=== PATIENT | male | born 1945 | race Caucasian/White ===

== ENCOUNTER 2017-05-06 09:52 | Inpatient (IN) | payer MEDICARE ==
[~2017-05-06] VITALS: Ht 180.3 cm; Wt 83.9 kg
--- NOTE | 2017-05-06 09:57 | ED.REPORT ---
HPI-Neurologic Deficit Date of Service May 06, 2017 ED Provider: The patient is a 71 year old male with history of previous strokes on Plavix, hypertension, high cholesterol, and thyroid disease, who was brought to the emergency department by his for symptoms concerning of a stroke. The patient states he was playing on the computer between 0830 and 0900 when he suddenly couldn't use his right arm. He was normal before 0830 this morning. He then came down the stairs to have breakfast with his around 0900. His states that the patient had a banana in his hand but couldn't figure out how to peel it. His also states that he was unable to speak to her and look confused. At this time the patient is able to speak but complains of right upper extremity weakness and numbness, and right-sided neck numbness. He denies any pain, visual changes, leg weakness or numbness, or problem walking. The patient did not have similar symptoms when he previously had a stroke. His states the patient vomited and was very fatigued. They saw his PCP the next day who diagnosed him with a stroke and started him on Plavix. Nursing Notes Stated Complaint: POSS STROKE Nursing Notes Reviewed: Yes Allergies: Coded Allergies: Penicillins (Verified Allergy, Intermediate, unknown, 05/06/17) Scheduled Atorvastatin (Lipitor) 20 Mg Tablet 20 MG PO DAILY Clopidogrel Bisulfate (Plavix) 75 Mg Tablet 75 MG PO DAILY Flaxseed Oil ([place]-3 Flaxseed Oil) 1,000 Mg Capsule Unknown Dose PO DAILY Levothyroxine (Synthroid) 50 Mcg Tablet 50 MCG PO DAILY Lisinopril (Lisinopril) 5 Mg Tablet 5 MG PO DAILY General Time Seen by Provider: 09:56 Chief Complaint Weakness arm... (Right), Numbness arm... (Right), Mental status change Hx Obtained From: Patient, Spouse Arrived By: Wheelchair Sudden in Onset?: Yes Onset Occurred: 1 - 4 hours ago Symptom Duration: Since onset Progression Since Onset: Constant Severity: Current: No pain currently Severity: Maximum: No pain Recent Healthcare: No recent doctor visit, No recent hospitalization Similar Sx Previous: No Risk Factors TPA Administration/Criteria Stroke Thrombolytic Therapy : TPA Considered: Yes Neurologist Contacted: Yes Consent Obtained: Patient NIH Stroke Scale Level of Consciousness: Alert and responsive (0) Ask Month & Age: Both questions right (0) Open/Close Eyes/Hand [employer] Supervisor: Performs both tasks (0) Horizontal EO Movements: None (0) Visual Mccarthy: No visual loss (0) Facial Palsy: Minor paralysis (1) Right Arm Motor Drift (10s): No effort, limb fails (3) Left Arm Motor Drift (10s): No drift 10 sec (0) Right Leg Motor Drift (5s): No drift 5 sec (0) Left Leg Motor Drift (5s): No drift 5 sec (0) Limb Ataxia FNF/Heel-Irwin: No ataxia (0) Sensation (Arms/Legs/Face): Complete sensory loss (2) Language Aphasia: No aphasia, normal (0) Dysarthria: Slurring intelligible (1) Extinction/Inattention: No exctinct/inattent (0) NIHSS Score: 7 Time NIHSS Performed: 10:11 Date NIHSS Performed: May 06, 2017 Past Medical History Past Medical History Hypertension High cholesterol Hypothyroidism Stroke on Plavix Past Surgical History Eyelid surgery Family History Noncontributory Smoking History Unknown if Ever Smoker Social History Other Social History: Good social support, , Local resident Ambulatory Status Independent Review of Systems Neurologic: Reports: Confusion, Focal weakness, Numbness, Unable to speak, Weakness, Denies: Headache, Problem walking, Vision change Complete sys rev & neg: except as marked. Physical Exam Initial Vital Signs Vital Signs (First) Date Time Temp Pulse Resp B/P Pulse Ox O2 Delivery O2 Flow Rate FiO2 05/06/17 10:06 36.4 65 15 146/76 98 Room Air Initial VS: Reviewed ENT: Mucous membranes moist, Conjunctiva normal, No scleral icterus Neck: Supple, Non-tender, Full range of motion Abdomen / GI: Soft, Non-tender, No guarding, No rebound, No distention Extremities: No swelling, No tenderness Skin: Warm, Dry, No cyanosis Psychiatric: Mood/affect normal, Behavior normal, Normal thought content General/Constitutional: Awake, Alert Head / Eyes: Atraumatic, Normocephalic, PERRL, EOMI Respiratory / Chest: Atraumatic, Breath sounds NL, Breath sounds = bilat, No respiratory distress, No rales, No rhonchi, No wheezing Cardiovascular: Heart rate NL, Regular rhythm, Heart sounds NL, No gallop, No murmurs, No rubs, Peripheral circulation NL Neurologic: Oriented X3 Speech: Positive: Slurred Focal Weakness: Positive: Upper extremity R Sensory Deficit: Positive: Upper extremity R Right-sided facial droop. NIH stroke scale: 7 Interpretation & Diagnostics PROCEDURE: CT ANGIO HEAD AND NECK IMPRESSION: 1. Old left cerebellar and right occipital lobe infarct. 2. Extensive findings likely associated with microvascular ischemic changes. 3. No acute intracranial findings. 4. No stenosis, occlusion, or aneurysm of the intracranial or cervical arteries. Dictated by: Ysabel Thompson M.D. on 05/06/2017 at 11:55 Lab Results Interpretation Result Diagram: 05/06/17 1012 05/06/17 1012 Test 05/06/17 10:12 White Blood Count 6.0th/mm3 (3.8-10.1) Red Blood Count 4.60mil/mm3 (4.40-5.80) Hemoglobin 15.8g/dL (13.8-17.2) Hematocrit 45.3% (41.0-50.0) Mean Corpuscular Volume 98.5fL (81-100) Mean Corpuscular Hemoglobin 34.3pg (27.0-35.0) Mean Corpuscular Hemoglobin Concent 34.9% (32.0-37.0) Red Cell Distribution Width 12.6% (12.3-15.4) Platelet Count 205bil/L (150-400) Neutrophils (%) (Auto) 56.0% (40-74) Lymphocytes (%) (Auto) 32.6% (14-46) Monocytes (%) (Auto) 9.4% (4-12) Eosinophils (%) (Auto) 1.3% (0-5) Basophils (%) (Auto) 0.5% (0-3) Prothrombin Time 11.0sec (8.1-12.5) Prothromb Time International Ratio 1.03ratio Activated Partial Thromboplast Time 26.1sec (22.8-33.0) Sodium Level 139mEq/L (134-144) Potassium Level 4.2mEq/L (3.5-5.2) Chloride Level 100mEq/L (97-108) Carbon Dioxide Level 22mmol/L (18-29) Blood Urea Nitrogen 16mg/dL (8-27) Creatinine 1.20mg/dL (0.76-1.27) Estimat Glomerular Filtration Rate 63mL/min (>59) Glucose Level 103mg/dL (60-99) Calcium Level 9.0mg/dL (8.5-10.1) Total Bilirubin 0.8mg/dL (0.0-1.2) Aspartate Amino Transf (AST/SGOT) 25U/L (0-50) Alanine Aminotransferase (ALT/SGPT) 30U/L (0-44) Alkaline Phosphatase 78U/L (25-160) Troponin T 0.010ug/L (0.0-0.011) Total Protein 6.8g/dL (6.4-8.4) Albumin 4.0g/dL (3.4-5.0) Hold Ko Top Tube Received (Received) ECG Interpretation ECG Interpretation: Sinus rhythm with a rate of 66 First degree AV block LAD No acute ST changes Time: 10:26 Interpreted by: ED physician X-Ray Chest Interpretation Chest Xray Interpretation: IMPRESSION: No acute cardiopulmonary findings. Dictated by: Ysabel Thompson M.D. on 05/06/2017 at 10:45 Interpretation / Wet Read by: Interpret - Radiologist CT Head Interpretation IMPRESSION: 1. Old right occipital lobe and left cerebellar hemisphere infarcts as described above. 2. Moderate periventricular and deep white matter changes. These are likely associated with chronic microvascular ischemic changes. However, hypodense deep white matter foci secondary to acute or subacute infarct cannot be excluded. Unfortunately, no prior comparisons are available to determine the acuity of these findings. If further characterization for acute or subacute infarct as warranted, noncontrast MRI could be considered. These findings were discussed with Dr. Campos at 10:16 AM on 05/06/17. This study fulfills neurological imaging criteria for inclusion or exclusion of acute stroke therapies based on available published neurological guidelines. Dictated by: Ysabel Thompson M.D. on 05/06/2017 at 10:08 Study: Head CT no contrast Interpretation / Wet Read by: Interpret - Radiologist, Renée w radiologist Re-Eval/Medical Decision Med Decision/Clinical Course Acute ischemic stroke without contraindication to TPA. TPA was administered. Patient will be admitted to intensive care. Source of Hx: Old records, Family Re-Evaluation/Progress #1: Time of Eval: 10:16 Re-Evaluation/Progress Note: The weakness has not improved since onset. Re-Evaluation/Progress #2: Time of Eval: 10:20 Re-Evaluation/Progress Note: Discussed plan to consult [place] neurologist and the possibility of TPA administration. Reviewed list of contraindications with the patient. Informed decision making. Re-Evaluation/Progress #3: Time of Eval: 10:36 Re-Evaluation/Progress Note: Discussed plan with family to go ahead with the medication. Re-Evaluation/Progress #4: Time of Eval: 10:37 Re-Evaluation/Progress Note: TPA bolus administered at this time. Re-Evaluation/Progress #5: Time of Eval: 10:46 Re-Evaluation/Progress Note: Rechecked the patient. He is stable at this time. Discussed plan for an additional head CT and admission to [facility]. Re-Evaluation/Progress #6: Time of Eval: 12:07 Re-Evaluation/Progress Note: Rechecked the patient. He is resting comfortably. Minimal increase in function of the deltoid and hand on the right side, patient reports sensory deficit is mildly improved. Consultation #1: Referral / Consult Name: Ysabel Thompson MD Call Returned at: 10:12 Note: Spoke with the radiologist about the patient's head CT results. Consultation #2: Consulted With: Neurology Requested Call at: 10:23 Consultation #3: Call Returned at: 10:25 Note: Spoke with pharmacy, will start mixing TPA. Consultation #4: Consulted With: Neurology Call Returned at: 10:30 Note: Paged [place] again. Consultation #5: Referral / Consult Name: Jazmin Jones MD Consulted With: Neurology Call Returned at: 10:40 Note: Spoke with Dr. Jones, she is out of town. If the patient is stable they should stay at [facility]. Dr. Jones is available by phone - must call answering service. Consultation #6: Referral / Consult Name: Trent Ortiz MD Consulted With: Hospitalist Call Returned at: 10:59 Credit Underwriter: Will see patient, Agrees with eval, Agrees with plan, Accepts admit Consultation #7: Consulted With: Neurology Call Returned at: 11:02 Note: [place] neurolog[facility] returned our call at this time. Discussed the patient's case and plan for admission to [facility]. Counseled Regarding: Diagnosis, Lab results, Need for admission Discharge & Departure Impression: Primary Impression: Stroke CVA mechanism: unspecified Qualified Code: I63.9 - Cerebral infarction, unspecified Disposition: ADMITTED TO HOSPITAL Discharge Condition All VS Reviewed: Yes Condition: Stable Referrals: Soledad Marrero MD (PCP) Crit Care Except Billable Proc Time Spent: 75-104 minutes Services Performed: Patient management by me, Time spent at bedside, Reviewing test results, Reviewing imaging, Discussing patient care, Documentation in record, Time with fam/surrogate Critical Care Notes: See MDM Scribe Attestation Portions of this note were transcribed by Dorothy See. I, Dr. Dominique personally performed the history, physical exam and medical decision-making; I reviewed and confirmed the accuracy of the information in the transcribed note. Signed by: Rod Gruber, 05/06/2017 at 1215. copies to: Soledad Marrero MD, Timothy S DO May 06, 2017 09:57 Dorothy See May 06, 2017 10:04
[2017-05-06] MEDS ORDERED: 0.9% Sodium Chloride 1,000 ML IV ONE (10:05)
[2017-05-06 10:06] VITALS: BP 146/76; PULSE 65; RESP 15; O2SAT 98
--- NOTE | 2017-05-06 10:19 | DRSVH ---
PROCEDURE: CT BRAIN (TPA) ([id number]) INDICATIONS: Stroke TECHNIQUE: Noncontrast 4.5 mm thick angled axial sections acquired from the foramen magnum to the vertex, with c oronal reformats. COMPARISON: None. FINDINGS: Image quality: Excellent. CSF spaces: Basal cisterns are patent. No extra-axial fluid collections. The ventricles are symmet adarsh in size and shape. Brain: No intracranial bleeds or masses. There is a moderate cerebral volume loss for age, with res ultant ventricular and sulcal prominence. Encephalomalacia is present within the lateral aspect of th e left cerebellar hemisphere and within the superomedial aspect of the left cerebellar hemisphere. En cephalomalacia is also present within the posterior aspect of the right occipital lobe. There are mo derate periventricular and deep white matter chronic small vessel ischemic changes. There is intracr anial internal carotid artery atherosclerosis. Skull and face: Calvarium and visualized facial bones appear intact, without suspicious lesions. Sinuses: Visualized sinuses and mastoids are clear. IMPRESSION: 1. Old right occipital lobe and left cerebellar hemisphere infarcts as described above. 2. Moderate periventricular and deep white matter changes. These are likely associated with chronic m icrovascular ischemic changes. However, hypodense deep white matter foci secondary to acute or subacu te infarct cannot be excluded. Unfortunately, no prior comparisons are available to determine the acu ity of these findings. If further characterization for acute or subacute infarct as warranted, noncon trast MRI could be considered. These findings were discussed with Dr. Campos at 10:16 AM on 05/06/17. This study fulfills neurological imaging criteria for inclusion or exclusion of acute stroke therapie s based on available published neurological guidelines. Dictated by: Ysabel Thompson M.D. on 05/06/2017 at 10:08 Approved by: Ysabel Thompson M.D. on 05/06/2017 at 10:17
[2017-05-06 10:29] LABS: BASOPHILS % (AUTO) 0.5 % (0-3); EOSINOPHILS % (AUTO) 1.3 % (0-5); MONOCYTES % (AUTO) 9.4 % (4-12); Mean Corpuscular Hemoglobin 34.3 pg (27.0-35.0); Mean Corpuscular Volume 98.5 fL (81-100); Platelet Count 205 bil/L (150-400)
[2017-05-06 10:30] VITALS: BP 142/69; PULSE 66; RESP 17; O2SAT 99
[2017-05-06] MEDS ORDERED: Alteplase Dose Per Pharmacist XX ONE (10:30)
[2017-05-06] MEDS ORDERED: Alteplase (No Charge) 1 mg/mL Syringe IV ONE (10:47)
--- NOTE | 2017-05-06 10:47 | DRSVH ---
PROCEDURE: X-RAY CHEST ONE VIEW, PORTABLE ([id number]) INDICATIONS: right arm numbness, paralysis TECHNIQUE: One view of the chest was acquired. COMPARISON: None. FINDINGS: Surgical changes and devices: None. Lungs and pleura: No pleural effusions or pneumothorax. Lungs are clear. Mediastinum: Mediastinal contours appear normal. Heart size is normal. Bones and chest wall: No suspicious bony lesions. Overlying soft tissues appear unremarkable. IMPRESSION: No acute cardiopulmonary findings. Dictated by: Ysabel Thompson M.D. on 05/06/2017 at 10:45 Approved by: Ysabel Thompson M.D. on 05/06/2017 at 10:45
[2017-05-06] MEDS ORDERED: ALTEPLASE IV ONE (10:48)
[2017-05-06 10:51] LABS: INR 1.03 ratio
[2017-05-06 10:56] LABS: TROPONIN T 0.01 ug/L (0.0-0.011)
[2017-05-06] MEDS ORDERED: hydrALAZINE 20 mg/mL Inj IVPUSH PRN (11:05)
[2017-05-06] MEDS ORDERED: Ondansetron 2 mg/mL 2 mL Inj IVPUSH PRN (11:05)
[2017-05-06] MEDS ORDERED: Labetalol 5 mg/mL 4 mL Inj IVPUSH PRN (11:05)
[2017-05-06] MEDS ORDERED: ATOR20TA PO (11:15)
[2017-05-06] MEDS ORDERED: LEVO50TA83 PO (11:15)
[2017-05-06] MEDS ORDERED: FLAX100038 PO (11:16)
[2017-05-06] MEDS ORDERED: LISI-571 PO (11:16)
[2017-05-06] MEDS ORDERED: CLOP75TA3 PO (11:17)
--- NOTE | 2017-05-06 12:06 | DRSVH ---
PROCEDURE: CT ANGIO HEAD AND NECK (P) INDICATIONS: Stroke - tPA Infusing TECHNIQUE: Pre-contrast 4.5 mm thick sections acquired from the foramen magnum to the vertex. After the adminis tration of intravenous contrast, 1 mm thick sections acquired from the aortic arch through the [place]. Post-contrast 4.5 mm thick sections then re-acquired from the foramen magnum to the vert ex. 3-dimensional npjrwxr-[id number]-kluzoksypb (MIP) and/or volume rendering reformats were acquired of the central intracranial vasculature and neck separately. For radiation dose reduction, the foll owing was used: automated exposure control, adjustment of mA and/or kV according to patient size. COMPARISON: None. FINDINGS: Image quality: Excellent. BRAIN: CSF spaces: Ventricles are normal in size and shape. Basal cisterns are patent. No extra-axial flu id collections. Brain: No midline shift. No intracranial bleeds or masses. Encephalomalacia is present within the l ateral and superior aspects of the left cerebellar hemisphere. A small focus of encephalomalacia is p resent within the posterior right occipital lobe. There extensive deep and periventricular white sukhdev er changes throughout the brain suggestive of microvascular ischemia. Guerra-white matter interface solomon ears intact. Skull and face: Calvarium and facial bones appear intact, without suspicious lesions. Orbits appear normal. Sinuses: Sinuses and mastoids are clear. HEAD CT ANGIOGRAPHY: Anterior circulation: Intracranial internal carotid arteries are normal in size and flow. Scattered atheromatous calcification is present throughout the intracranial portions of the internal carotid ar teries without hemodynamically significant stenosis. The flow within the paired anterior cerebral art eries is normal and symmetric. The flow within the middle cerebral arteries is normal and symmetric. The anterior communicating artery is seen. No aneurysms are seen. Posterior circulation: Visualized portions of the vertebral arteries demonstrate normal caliber, and join to form a normal appearing basilar artery. Flow within the posterior cerebral arteries is norm al and symmetric. No aneurysms are seen. NECK CT ANGIOGRAPHY: Carotid system: The great vessels demonstrate a conventional anatomy as they arise from the aortic a h. The origins of the common carotid arteries appear patent. The common carotid arteries demonstr ate normal caliber and courses. The bifurcation regions are both widely patent. The internal caroti d arteries demonstrate normal calibers and courses. Posterior circulation: The origins of the vertebral arteries both appear widely patent. The more pagan perior extracranial portions of both vertebral arteries also demonstrate normal courses and calibers. They join to form a normal appearing basilar artery. Soft tissues: Visualized neck soft tissues demonstrate no suspicious abnormalities. Bones: No suspicious bony lesions. Visualized cervical spine appears normally aligned. IMPRESSION: 1. Old left cerebellar and right occipital lobe infarct. 2. Extensive findings likely associated with microvascular ischemic changes. 3. No acute intracranial findings. 4. No stenosis, occlusion, or aneurysm of the intracranial or cervical arteries. Dictated by: Ysabel Thompson M.D. on 05/06/2017 at 11:55 Approved by: Ysabel Thompson M.D. on 05/06/2017 at 12:04
--- NOTE | 2017-05-06 12:13 | NUR ---
Evaluation completed. Please go to "Notes" then click on "Assessments and Notes" (bottom left corner of screen). Then select appropriate discipline tab on top of screen.
[2017-05-06 12:22] VITALS: BP 134/77; PULSE 73; RESP 16; O2SAT 98
[2017-05-06 12:27] LABS: APPEARANCE,URINE CLEAR (CLEAR,HAZY); COLOR,URINE STRAW (YELLOW); OCCULT BLOOD,URINE NEGATIVE (NEGATIVE); PH,URINE 6.5 (5.0-8.0); UROBILINOGEN,URINE NORMAL (NORMAL)
--- NOTE | 2017-05-06 13:21 | PCM.HPMED ---
Subjective Date of Service May 06, 2017 Primary Provider: Admitting Physician: Trent Ortiz MD Primary Care Physician: Soledad Marrero MD Attending Physician: Trent Ortiz MD Admit Status: From the Emergency Department Chief Complaint: Right arm weakness History of Present Illness: Critical Care Admission H&P note Patient Adama Frank is a 71-year-old man with past medical history remarkable for dyslipidemia hypertension and previous strokes who presents with new onset right upper extremity weakness. The patient states that at 8:30 he was playing computer games as normal and his regular state of health when he began to notice right arm weakness worse in his biceps and shoulder with numbness starting in his anterior neck and radiating into his right upper extremity. Per the 's report the patient had came down to breakfast at approximately 9:00 and appeared unable to speak with a confused look holding a banana in his hand but could not figure out how to peal it. That is when the patient's decided to bring the patient into the emergency department for possible stroke given the patient's history. The patient's PCP Dr. Marrero has reportedly sent the patient to a neurologist in [facility] where imaging was performed not currently available in [facility]. The patient has been taking Plavix since the initial diagnosed stroke. The patient denies any acute visual changes, headaches, leg weakness and numbness problems walking, nausea, vomiting, shortness of breath or chest pain. In the [facility] emergency Department the patient was assessed and found to have an NIH stroke scale score of [address] head without contrast at which point the patient was given TPA at approximately 10:37 AM. The patient had a follow-up CT angiogram which failed to reveal a significant thrombus occlusion. The patient was then admitted to the CCU for post-TPA protocol. Review of Systems: A comprehensive review of systems was obtained and all are negative except for what is included in the history of present illness. Allergies Coded Allergies: Penicillins (Verified Allergy, Intermediate, unknown, 05/06/17) Home Medications Atorvastatin 20 mg Clopidogrel 75 mg Levothyroxine 50 g Lisinopril 5 mg PMH Dyslipidemia Hypertension Hypothyroidism Depression Stroke Report of viral encephalitis Surgical History Bilateral eye surgery Skin surgeries Family History Brother had diabetes mellitus Mother had Alzheimer's disease but lived to be 91 Father lived to be 80s fairly healthy. 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 Hx Alcohol Use: Yes (a couple of drinks a week) Hx Substance Use: No Hx Tobacco Use: No Living Arrangement: with Family Exam Vital Signs Vital Sign - Last Date Time Temp Pulse Resp B/P Pulse Ox O2 Delivery O2 Flow Rate FiO2 05/06/17 12:22 36.4 73 16 134/77 98 Room Air Exam General: Senior patient with normal body habitus appears in no acute distress Eyes: Pupils equal round and reactive to light, extraocular motion intact, anicteric sclera, significant Bilateral conjunctival injection noted HENT: Normocephalic atraumatic, moist mucous membranes without central cyanosis , oropharynx clear without cobblestoning Neck: Supple, trachea midline, no thyromegaly, no JVD or carotid bruits noted Cardiovascular: Regular rate and rhythm, no murmurs rubs or gallops noted Lungs: Clear to auscultation bilaterally without wheezing or rhonchi Abdomen: Soft, nontender, nondistended, tympanic to percussion, no organomegaly noted : No [place] catheter in place Extremities: No cyanosis clubbing or edema noted. Pulses intact bilaterally radial and dorsalis pedis Skin: Warm and dry MSK: Weakness noted in right upper extremity and both bicep tricep and deltoid, weakness also noted in right shoulder shrug, strength is intact in trend investigator, plantar , dorsiflexion Neuro: Cranial nerves II through XII are grossly intact, decreased sensation in right upper extremity throughout, no significant dysdiadochokinesia noted in upper extremities at hands or lower extremities, upgoing Babinski bilaterally, right bicep reflexes intact Psych: Normal mood and affect Lab and Diagnostics Result Diagram: 05/06/17 1012 05/06/17 1012 X-Rays, CTs and MRIs CT ANGIO HEAD AND NECK IMPRESSION: 1. Old left cerebellar and right occipital lobe infarct. 2. Extensive findings likely associated with microvascular ischemic changes. 3. No acute intracranial findings. 4. No stenosis, occlusion, or aneurysm of the intracranial or cervical arteries. Approved by: Ysabel Thompson M.D. on 05/06/2017 at 12:04 CT BRAIN IMPRESSION: 1. Old right occipital lobe and left cerebellar hemisphere infarcts as described above. 2. Moderate periventricular and deep white matter changes. These are likely associated with chronic microvascular ischemic changes. However, hypodense deep white matter foci secondary to acute or subacute infarct cannot be excluded. Unfortunately, no prior comparisons are available to determine the acuity of these findings. If further characterization for acute or subacute infarct as warranted, noncontrast MRI could be considered. These findings were discussed with Dr. Campos at 10:16 AM on 05/06/17. This study fulfills neurological imaging criteria for inclusion or exclusion of acute stroke therapies based on available published neurological guidelines. Approved by: Ysabel Thompson M.D. on 05/06/2017 at 10:17 X-RAY CHEST ONE VIEW, PORTABLE FINDINGS: IMPRESSION: No acute cardiopulmonary findings. Approved by: Ysabel Thompson M.D. on 05/06/2017 at 10:45 Assessment & Plan Patient Adama Frank is a 71-year-old man with past medical history remarkable for dyslipidemia hypertension and previous strokes who presents with new onset right upper extremity weakness. # Acute cerebrovascular accident - Patient presented to the emergency department with acute loss of right upper extremity sensation and strength. - On initial patient presentation and NIH stroke scale reported to be 7 - CT noncontrast read as moderate periventricular and deep white matter changes. These are likely associated with chronic microvascular ischemic changes. However, hypodense deep white matter foci secondary to acute or subacute infarct cannot be excluded. - Patient given TPA in the emergency department after imaging study fails to reveal a hemorrhagic stroke at 10:37 approximately 2 hours since the last normal - Patient had follow-up CT angiogram which failed to reveal a significant stenosis or occlusion of cerebral vasculature - Patient admitted to CCU with post TPA protocol including regular neuro checks per nursing staff - Speech consulted for swallow evaluation with patient improved for general diet - Neurology consulted, follow up NIH stroke scale 3 at CCU admission - Echo with bubble study ordered - MRI without contrast ordered for 05/07/2017 per neurology recommendations - Labetalol and hydralazine available when necessary for significantly elevated blood pressures >[address] for goal systolic blood pressure between 150 and 180 - NS running at 100 mils per hour for improved blood pressure given for systolic pressures of 130s to 140s at arrival in CCU - Atorvastatin 80 mg given as a one-time dose to be repeated daily at bedtime - PT/OT evaluation - We will obtain follow-up CT noncontrast prior to initiating ASA and clopidogrel 24 hrs after TPA administration on May 07 2017, depending on neuro recommendations DVT prophylaxis: SCDs with additional anticoagulation Contraindicated at this time given TPA administration, may consider initiation of heparin at more than 24 hours from TPA administration GI prophylaxis: Not indicated at this time CODE STATUS full The patient was admitted to CCU inpatient status with expected length of stay greater than 2 midnights given her presenting symptoms, likely complications, and require treatments. Pain Evaluation: Adequate Pain Control GI Prophylaxis: Not indicated VTE Prophylaxis Indicated: Contraindicated VTE Prophylaxis: Other (TPA given) VTE Mechanical Devices: Intermittant Pneumatic CD Resuscitation Status: CPR: Attempt Resuscitation Emeka Rosen DO May 06, 2017 13:21
[2017-05-06] MEDS: 0.9% Sodium Chloride 1,000 ML IV SCH (15:09)
--- NOTE | 2017-05-06 15:17 | CONS ---
[address] [address] CONSULTATION REPORT PATIENT: KEI JEWELL : 1945 MR#: [id number] ADMIT: 05/06/2017 JOB ID: [id number] NEUROLOGY CONSULTATION: DATE OF SERVICE: 05/06/2017 CHIEF COMPLAINT: Sudden onset right upper extremity weakness. REQUESTING PROVIDER: Dr. Reza. HISTORY OF PRESENTING ILLNESS: The patient is a very pleasant, 71-year-old, right-handed man with multiple medical problems, who presented following sudden onset of right upper extremity weakness. He also notes right upper extremity numbness. He was within the tPA window and received tPA. He reports that he has noted improvement in his symptoms at the bedside. He does report a history of multiple strokes in the past. He did see Dr. Michelle Benedict in the past. I did review her notes from 2013. I also reviewed notes from his primary care provider, Dr. Marrero, who he saw in December. In 2013, his MRI brain was noted to be remarkable for a subacute stroke in the cerebellum in the remote right parietal lobe. Decision was made to switch to Plavix as he reported at that time that he had been taking aspirin on a daily basis. He was also taking atorvastatin 20 mg at that time. He did have a Holter monitor study that I reviewed; the report of which I reviewed that was unremarkable. He does report a history of migraine headaches; however he notes that the migraine headaches are only triggered by certain foods such as Velveeta cheese and monosodium glutamate among others. He does report a family history of stroke in both parents; however his mother was 75 and his father was in his 80s. He does not smoke. He reports occasional alcohol use. No drugs. 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 I did review his computed tomography scan of the brain which did demonstrate white matter changes rather marked in nature which could be consistent with his prior history of viral encephalitis. He reports that he attributes the viral encephalitis to exposure to horses; however a definitive diagnosis of an equine encephalitis or a herpes simplex virus encephalitis; if this diagnosis was made, it was not communicated to him or his . He was told that he had encephalitis of unknown etiology. He has noted residual memory impairments following the encephalitis which was approximately 25 years ago. PAST SURGICAL HISTORY: Tonsillectomy. PAST MEDICAL HISTORY: Hypothyroidism, encephalitis as noted above, multiple strokes, migraine headaches without aura, hyperlipidemia and depression. He denies any history of diabetes. FAMILY HISTORY: As noted above, family history is remarkable for strokes at age 75 and in the mid 80s, in his mother and father, respectively. MEDICATIONS: Current medications can be found in the chart. ALLERGIES: No known drug allergies. His suspects that he may have an allergy to penicillin; however the patient stated that he is not sure if that is the case. REVIEW OF SYSTEMS: A complete review of systems was performed and was remarkable for above-noted. Modified [place] scale as an outpatient was zero. Modified [place] scale at this point is three. NIH stroke scale in the emergency department was noted to be 7. NIH stroke scale now is noted to be 4. Initially the NIH stroke scale was noted to be minor paralysis of the right side of his face for which he received a 1. Right arm motor drift at 10 seconds. No afferent limb fails for which he received a 3. Complete sensory loss for which he received 2 of the right upper extremity. Also noted for dysarthria, slurring intelligible speech, for which he received a 1. NIH stroke scale at this time remarkable for right arm motor drift at 10 seconds, score of 2, and sensory loss of the right upper extremity; a score of 2 for a total score of 4. He has also had eyelid surgeries in the past. He does report a history eyelid surgeries that were reportedly unsuccessful and he does report a history of conjunctival injection in both eyes which was noted on physical examination. No recent infections, fevers, chills, nausea, vomiting. A complete review of systems was performed which was unremarkable. DIAGNOSTIC DATA: EKG revealed a heart rate of 66, sinus rhythm, borderline prolonged UT interval. LAD, consider left anterior fascicular block, low voltage precordial leads. However no atrial fibrillation was noted. LAB WORK: WBC 6.0, hemoglobin 15.8, hematocrit 45.3, platelets of 205. Chemistries: Sodium 139, potassium 4.2, chloride was 100, bicarb was 22, BUN was 16, creatinine 1.20. Glucose of 103. LFTs were within normal limits. Urinalysis unremarkable. PT was 11.0, INR 1.03, and PTT was 26.1. Please see emergency department note for more information regarding the initiation of IV tPA. He was noted to be last known normal at 0.830. PHYSICAL EXAMINATION: Temperature 36.4, pulse of 73, respiratory rate of 16, blood pressure 134/77, pulse oximetry 98% on room air. General: He is a well-developed, well-nourished man in no acute distress. Head: Normocephalic, atraumatic. Neck is supple. No carotid bruits were auscultated. Negative Kernig. Negative Brudzinski. Chest clear to auscultation. Heart: Regular rate and rhythm. Abdomen: Soft, nondistended, nontender. Extremities: No cyanosis, clubbing, or edema. NEUROLOGIC EXAMINATION: Mental status: He is awake, alert, oriented x3. Speech clear and fluent with intact comprehension. There was no aphasia. No dysarthria or dysphonia were noted. Cranial nerves: Pupils equal, round, reactive to light. Extraocular movements were smooth and conjugate with no evidence of nystagmus. Face appeared symmetrical. Facial sensation was intact to light touch and temperature. Auditory sensation was intact to finger rub. Palatal elevation was symmetrical. Tongue was midline. Sternocleidomastoid and trapezii were 5/5 bilaterally. There was bilateral conjunctival injection. No ptosis was noted. No oral facial weakness was noted. Motor: There is drift of the right upper extremity within 10 seconds; however he is able to lift it above gravity and maintain it, although for less than 10 seconds. Coordination: [id number] was deferred on the right secondary to right upper extremity weakness; that was intact on the left with no evidence of dysmetria. Motor otherwise 5/5 throughout. Sensation was diminished to light touch and temperature in the right upper extremity. Rest of sensory examination was within normal limits. Coordination as above. Deep tendon reflexes brisk in the right upper extremity; rest 2+. Plantars were silent bilaterally. Gait was deferred. IMPRESSION: Cerebrovascular accident. This occurred despite being on Plavix. Risk factors do include hypertension, hyperlipidemia, and hypothyroidism. I did review his CT angiogram which demonstrated an old left cerebellar and right occipital lobe infarct and microvascular ischemic changes, extensive deep and periventricular white matter changes throughout the brain as noted above in the body of my note. No acute intracranial findings. No stenosis, occlusion, or aneurysm of the intracranial or cervical arteries. Chest x-ray was performed, which demonstrated no acute cardiopulmonary findings. A CT of the head without contrast demonstrated above findings with no evidence of hemorrhage or mass lesion. RECOMMENDATIONS: Continue stroke protocol, post tPA. I recommend obtaining a magnetic resonance imaging study of his brain with and without contrast. I recommend obtaining a 2D echocardiogram. If this is unremarkable, he may benefit from a transesophageal echocardiogram to exclude the possibility of a cardioembolic etiology especially given the location of his two prior strokes. If these are unremarkable, I do recommend that as an outpatient he received an event monitor or at the very minimum a Zio Patch study for 14 days. An event monitor would be preferable. My suspicion is that his prior strokes may have been cardioembolic in nature and this stroke as well may be cardioembolic in nature. I also recommend a fasting lipid profile tomorrow morning and adjustment of statin as indicated given fasting lipid profile results. Continue stroke protocol. Recommend continued optimization of control of stroke risk factors. Thank you, again, Dr. Reza, for allowing me to participate in care of your patient. Please feel free to contact me with any questions or concerns. CRITICAL CARE UNIT TIME: 45 minutes.
[2017-05-06 16:02] VITALS: BP 136/62; PULSE 63; RESP 13; O2SAT 97
--- NOTE | 2017-05-06 18:10 | PCM.HPMED ---
Subjective Date of Service May 06, 2017 Primary Provider: Admitting Physician: Trent Ortiz MD Primary Care Physician: Soledad Marrero MD Attending Physician: Trent Ortiz MD Juice Weigher: Kameron Preciado DO Admit Status: From the Emergency Department Chief Complaint: Right arm weakness History of Present Illness: Adama Frank is a 71-year-old gentleman with past medical history of prior CVA in 2013 with no residual deficits, hyperlipidemia and hypertension who presents with new onset right upper extremity weakness. At 0830 today, patient mentions he playing a game on his computer when he suddenly began to have right arm weakness, most noticeably in the bicep and shoulder with numbness starting in his anterior neck, radiating into the right arm and forearm. According to the , the patient had come down around 0900 and was unable to speak, confused and holding a banana in his hand, but unable to figure out how to peel it. He was then brought in by the to the emergency department. He does have a history of stroke back in 2013, but it is unclear what the workup was and he has no residual deficits from it. His workup was reportedly done at [facility]. He has been taking Plavix since then. He denies any headaches, acute visual changes, difficulty with swallowing, chest pain, shortness of breath, nausea, vomiting, difficulty with walking, or other sensory losses. In the emergency department, the patient was found to have an NIH stroke scale score of 7. CT head without contrast did not show any signs of bleeding and so TPA was given at around 1037. Follow up CT angiogram did not show any thrombus occlusion. The patient was admitted to CCU for post-TPA protocol. Review of Systems: A comprehensive review of systems was conducted with the patient and found to be negative except as above in the History of Present Illness. Allergies Coded Allergies: Penicillins (Verified Allergy, Intermediate, unknown, 05/06/17) Home Medications Atorvastatin 20 mg Synthroid 50 mcg Lisinopril 5 mg Clopidogrel 75 mg PMH CVA (2013 with no residual deficits, now on Plavix) Hypertension Hyperlipidemia Surgical History Bilateral eye surgery Skin surgeries Family History Brother had diabetes mellitus Mother had Alzheimer's disease but lived to be 91 Father lived to be 80s fairly healthy. 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 External ears without defect. Pupils equal, round, and reactive to light and accommodation. Injected conjunctivae (chronic per patient), moist conjunctivae, and no lid lag. Neck: Supple with full range of motion. No jugular venous distension. No lymphadenopathy or thyromegaly. Cardiovascular: Regular rate and rhythm with no murmurs, rubs, or gallops appreciated Pulmonary: Clear to auscultation bilaterally with no crackles, wheezes, or rhonchi. Normal respiratory effort with no use of accessory muscles. Abdomen: Bowel tones present. Soft, nontender, nondistended. No hepatosplenomegaly or masses appreciated. Extremities: No clubbing, cyanosis, edema, or lymphadenopathy appreciated. Skin: Normal temperature, turgor, and texture; no rash, ulcers, or subcutaneous nodules appreciated. Neurological: Cranial nerves II - XII intact. Patient has good rotation of head , but weakness with right shoulder shrug. 2/5 strength in right arm flexion and extension. 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 No sensation from right upper shoulder distally till the wrist. There is sensation in his hands. Reflexes are intact. 4 /5 left upper extremity strength. 4/5 lower extremity strength bilaterally with no loss in sensation. Finger to nose slow on right arm due to right upper extremity weakness. Repeat NIH stroke scale score is 4. No slurred speech. Psychiatric: Normal mood and affect. Alert and oriented to person, place, and time. Lab and Diagnostics Result Diagram: 05/06/17 1012 05/06/17 1012 X-Rays, CTs and MRIs CT ANGIO HEAD AND NECK IMPRESSION: 1. Old left cerebellar and right occipital lobe infarct. 2. Extensive findings likely associated with microvascular ischemic changes. 3. No acute intracranial findings. 4. No stenosis, occlusion, or aneurysm of the intracranial or cervical arteries. Approved by: Ysabel Thompson M.D. on 05/06/2017 at 12:04 CT BRAIN IMPRESSION: 1. Old right occipital lobe and left cerebellar hemisphere infarcts as described above. 2. Moderate periventricular and deep white matter changes. These are likely associated with chronic microvascular ischemic changes. However, hypodense deep white matter foci secondary to acute or subacute infarct cannot be excluded. Unfortunately, no prior comparisons are available to determine the acuity of these findings. If further characterization for acute or subacute infarct as warranted, noncontrast MRI could be considered. These findings were discussed with Dr. Campos at 10:16 AM on 05/06/17. This study fulfills neurological imaging criteria for inclusion or exclusion of acute stroke therapies based on available published neurological guidelines. Approved by: Ysabel Thompson M.D. on 05/06/2017 at 10:17 X-RAY CHEST ONE VIEW, PORTABLE FINDINGS: IMPRESSION: No acute cardiopulmonary findings. Approved by: Ysabel Thompson M.D. on 05/06/2017 at 10:45 Assessment & Plan Adama Frank is a 71-year-old gentleman with past medical history of prior CVA in 2014 with no residual deficits, hyperlipidemia and hypertension who presents with new onset right upper extremity weakness. Acute cerebrovascular accident Patient presented to the emergency department with acute loss of right upper extremity sensation and strength, NIH stroke scale score 7, CT without acute bleed, TPA given approximately 2 hours after initial presentation. - Patient admitted to CCU with post TPA protocol including regular neuro checks per nursing staff - Speech consulted for swallow evaluation and given recommendation for general diet. - Neurology consulted, follow up NIH stroke scale score 4 at admission into CCU - Echo with bubble study, MRI without contrast ordered for 05/07/2017 per neurology recommendations - Labetalol and hydralazine available when necessary for significantly elevated blood pressures >[address] for goal systolic blood pressure between 150 and 180. - NS running at 100 mL/hour for improved blood pressure given for systolic pressures of 130s to 140s at arrival in CCU - Atorvastatin 80 mg given as a one-time dose to be repeated daily at bedtime - PT/OT evaluation - We will obtain follow-up CT noncontrast prior to initiating ASA and clopidogrel 24 hrs after TPA administration on May 07 2017, depending on neurology recommendations Essential Hypertension, present on admission, active - Allowing for permissive hypertension with goal systolic blood pressure between 150-180. - Hold home blood pressure medications Hyperlipidemia, chronic - Atorvastatin given as above. DVT prophylaxis: SCDs with additional anticoagulation contraindicated at this time given TPA administration, may consider initiation of heparin at more than 24 hours from TPA administration GI prophylaxis: Not indicated at this time CODE STATUS: Full Code The patient was admitted to CCU inpatient status with expected length of stay greater than 2 midnights given her presenting symptoms, likely complications, and require treatments. Pain Evaluation: Adequate Pain Control GI Prophylaxis: Not indicated VTE Prophylaxis Indicated: Contraindicated VTE Prophylaxis: Other (TPA given) VTE Mechanical Devices: Intermittant Pneumatic CD Resuscitation Status: CPR: Attempt Resuscitation Attending Statement The patient was seen and examined together with Dr. Preciado on 05/06/2017 and I agree with the history, exam and plan as outlined in the note above. . copies to: Soledad Marrero MD, Malik A DO May 06, 2017 18:10 Trent Ortiz MD May 07, 2017 15:05
--- NOTE | 2017-05-06 19:06 | PCM.CHPMED ---
Subjective Date of Service: May 06, 2017 Provider requesting consult: Trent Ortiz MD Primary Physician: Admitting Physician: Trent Ortiz MD Primary Care Physician: Soledad Marrero MD Attending Physician: Trent Ortiz MD Admit Status: From the Emergency Department Chief Complaint: Chief Complaint: Right arm weakness History of Present Illness: Critical Care Consult note Patient Adama Frank is a 71-year-old man with past medical history remarkable for dyslipidemia hypertension and previous strokes who presents with new onset right upper extremity weakness. The patient states that at 8:30 he was playing computer games as normal and his regular state of health when he began to notice right arm weakness worse in his biceps and shoulder with numbness starting in his anterior neck and radiating into his right upper extremity. Per the 's report the patient had came down to breakfast at approximately 9:00 and appeared unable to speak with a confused look holding a banana in his hand but could not figure out how to peal it. That is when the patient's decided to bring the patient into the emergency department for possible stroke given the patient's history. The patient's PCP Dr. Marrero has reportedly sent the patient to a neurologist in [facility] where imaging was performed not currently available in [facility] system. The patient has been taking Plavix since the initial diagnosed stroke. The patient denies any acute visual changes, headaches, leg weakness and numbness problems walking, nausea, vomiting, shortness of breath or chest pain. In the [facility] emergency Department the patient was assessed and found to have an NIH stroke scale score of [address] head without contrast at which point the patient was given TPA at approximately 10:37 AM. The patient had a follow-up CT angiogram which failed to reveal a significant thrombus occlusion. The patient was then admitted to the CCU for post-TPA protocol. Review of Systems: A comprehensive review of systems was obtained and all are negative except for what is included in the history of present illness. PMH Past Medical History Dyslipidemia Hypertension Hypothyroidism Depression Stroke Report of viral encephalitis Bedside Blood Glucose: 108 Surgical History Bilateral eye surgery Skin surgeries Home Medications Atorvastatin 20 mg Clopidogrel 75 mg Levothyroxine 50 g Lisinopril 5 mg Allergies: Coded Allergies: Penicillins (Verified Allergy, Intermediate, unknown, 05/06/17) Family History Family History Brother had diabetes mellitus Mother had Alzheimer's disease and stroke in 80s but lived to be 91 Father had a stoke in 70s lived to be 80s fairly healthy. 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 Hx Alcohol Use: Yes (a couple of drinks a week)Hx Substance Use: NoHx Tobacco Use: No Living Arrangement: with Family Exam Vital Signs Vital Sign - Last Date Time Temp Pulse Resp B/P Pulse Ox O2 Delivery O2 Flow Rate FiO2 05/06/17 16:02 36.8 63 13 136/62 97 Room Air Additional Information: General: Senior patient with normal body habitus appears in no acute distress Eyes: Pupils equal round and reactive to light, extraocular motion intact, anicteric sclera, significant Bilateral conjunctival injection noted HENT: Normocephalic atraumatic, moist mucous membranes without central cyanosis , oropharynx clear without cobblestoning Neck: Supple, trachea midline, no thyromegaly, no JVD or carotid bruits noted Cardiovascular: Regular rate and rhythm, no murmurs rubs or gallops noted Lungs: Clear to auscultation bilaterally without wheezing or rhonchi Abdomen: Soft, nontender, nondistended, tympanic to percussion, no organomegaly noted : No [place] catheter in place Extremities: No cyanosis clubbing or edema noted. Pulses intact bilaterally radial and dorsalis pedis Skin: Warm and dry MSK: Weakness noted in right upper extremity and both bicep tricep and deltoid, weakness also noted in right shoulder shrug, strength is intact in finish cleaner, plantar , dorsiflexion Neuro: Cranial nerves II through XII are grossly intact, decreased sensation in right upper extremity throughout, no significant dysdiadochokinesia noted in upper extremities at hands or lower extremities, upgoing Babinski bilaterally, right bicep reflexes intact Psych: Normal mood and affect Lab and Diagnostics Result Diagram: 05/06/17 1012 05/06/17 1012 X-Rays, CTs and MRIs X-Rays, CTs and MRIs CT ANGIO HEAD AND NECK IMPRESSION: 1. Old left cerebellar and right occipital lobe infarct. 2. Extensive findings likely associated with microvascular ischemic changes. 3. No acute intracranial findings. 4. No stenosis, occlusion, or aneurysm of the intracranial or cervical arteries. Approved by: Ysabel Thompson M.D. on 05/06/2017 at 12:04 CT BRAIN IMPRESSION: 1. Old right occipital lobe and left cerebellar hemisphere infarcts as described above. 2. Moderate periventricular and deep white matter changes. These are likely associated with chronic microvascular ischemic changes. However, hypodense deep white matter foci secondary to acute or subacute infarct cannot be excluded. Unfortunately, no prior comparisons are available to determine the acuity of these findings. If further characterization for acute or subacute infarct as warranted, noncontrast MRI could be considered. These findings were discussed with Dr. Campos at 10:16 AM on 05/06/17. This study fulfills neurological imaging criteria for inclusion or exclusion of acute stroke therapies based on available published neurological guidelines. Approved by: Ysabel Thompson M.D. on 05/06/2017 at 10:17 X-RAY CHEST ONE VIEW, PORTABLE FINDINGS: IMPRESSION: No acute cardiopulmonary findings. Approved by: Ysabel Thompson M.D. on 05/06/2017 at 10:45 Assessment & Plan Assessment Patient Adama Frank is a 71-year-old man with past medical history remarkable for dyslipidemia hypertension and previous strokes who presents with new onset right upper extremity weakness. # Acute cerebrovascular accident - Patient presented to the emergency department with acute loss of right upper extremity sensation and strength. - On initial patient presentation and NIH stroke scale reported to be 7 - CT noncontrast read as moderate periventricular and deep white matter changes. These are likely associated with chronic microvascular ischemic changes. However, hypodense deep white matter foci secondary to acute or subacute infarct cannot be excluded. - Patient given TPA in the emergency department after imaging study fails to reveal a hemorrhagic stroke at 10:37 approximately 2 hours since the last normal - Patient had follow-up CT angiogram which failed to reveal a significant stenosis or occlusion of cerebral vasculature - Patient admitted to CCU with post TPA protocol including regular neuro checks per nursing staff - Speech consulted for swallow evaluation with patient improved for general diet - Neurology consulted, follow up NIH stroke scale 3 at CCU admission - Echo with bubble study ordered - MRI without contrast ordered for 05/07/2017 per neurology recommendations - Labetalol and hydralazine available when necessary for significantly elevated blood pressures >[address] for goal systolic blood pressure between 150 and 180 - NS running at 100 mils per hour for improved blood pressure given for systolic pressures of 130s to 140s at arrival in CCU - Atorvastatin 80 mg given as a one-time dose to be repeated daily at bedtime - PT/OT evaluation - We will obtain follow-up MRI with and without contrast prior to initiating ASA and clopidogrel 24 hrs after TPA administration on May 07 2017, depending on neuro recommendations DVT prophylaxis: SCDs with additional anticoagulation Contraindicated at this time given TPA administration, may consider initiation of heparin at more than 24 hours from TPA administration GI prophylaxis: Not indicated at this time Problems: Pain Evaluation: Adequate Pain Control GI Prophylaxis: Not indicated VTE Prophylaxis Indicated: Contraindicated VTE Prophylaxis: Other (TPA given) VTE Mechanical Devices: Intermittant Pneumatic CD Resuscitation Status: CPR: Attempt Resuscitation Emeka Rosen DO May 06, 2017 19:06
[2017-05-06 20:00] VITALS: BP 117/57; PULSE 66; RESP 15; O2SAT 95
[2017-05-07] VITALS (9 sets, daily range): BP systolic 91–161; BP diastolic 40–84; PULSE 56–75; RESP 10–18; O2SAT 95–98
[2017-05-07] MEDS: 0.9% Sodium Chloride 1,000 ML IV SCH ×3 (00:05→20:05)
[2017-05-07 03:22] LABS: BASOPHILS % (AUTO) 0.4 % (0-3); EOSINOPHILS % (AUTO) 1.6 % (0-5); MONOCYTES % (AUTO) 9.3 % (4-12); Mean Corpuscular Hemoglobin 33.5 pg (27.0-35.0); Mean Corpuscular Volume 100.2 fL (81-100); NEUTROPHILS % (AUTO) 59.1 % (40-74); Platelet Count 189 bil/L (150-400)
[2017-05-07 03:58] LABS: Magnesium 2.1 mg/dL (1.6-2.6)
--- NOTE | 2017-05-07 05:24 | NUR ---
Neuro. Vs as noted. Neuro checks q1h. Reports right scalp/ neck numbness that he reports aways reports is getting better. Remains alert and oriented. No other deficits. Tele sinus rhythm 50s to 70s. No signs of bleeding or bruising. Voiding adequately per urinal. IVF NS at 100ml/h.
--- NOTE | 2017-05-07 10:44 | NUR ---
Imaging. Pt to MRI
--- NOTE | 2017-05-07 11:44 | DRSVH ---
PROCEDURE: MRI BRAIN WITH AND WITHOUT CONTRAST ([id number]) INDICATIONS: Stroke, post TPA TECHNIQUE: Noncontrast axial T1 spin echo, axial T2 fast spin echo, sagittal and axial FLAIR, coronal T2 fast sp in echo, axial gradient echo, axial diffusion and ADC through the brain. After the administration of contrast, axial and coronal T1 spin echo with fat saturation through the brain. COMPARISON: [facility], CT, CT ANGIO BRAIN AND NECK, 05/06/2017, 11:07. [facility], CT, BRAIN (TPA), 05/06/2017, 10:07. FINDINGS: Image quality: Excellent. CSF spaces: Basal cisterns are patent. No extra-axial fluid collections. Ventricles are normal in size and shape. Brain: No midline shift. No intracranial bleeds or masses. No abnormal intracranial enhancement. There is cerebral volume loss for age. There is periventricular white matter chronic small vessel is chemic change. The brainstem appears normal. Diffusion-weighted images demonstrate a 35mm anteropos terior by 10 mm transverse region of cortical high signal intensity within the left anterosuperior fr ontal lobe. Additionally, within the left superior frontoparietal lobe junction, there is a 27 mm tra nsverse by 13 mm in anteroposterior region of elevated signal intensity. These findings demonstrate m oderate FLAIR signal elevation, and are consistent with subacute infarcts. Chronic left greater than right cerebellar infarcts and small chronic right medial occipital lobe infarct is present. No chroni c ischemic insults. Normal intravascular flow voids are present. Skull and face: Calvarial marrow is normal in signal. Orbits appear normal. Sinuses: Sinuses and mastoids appear clear. IMPRESSION: 1. Subacute left frontoparietal lobe infarcts. 2. Volume loss and small vessel ischemic disease. 3. Chronic cerebral and cerebellar infarcts. Dictated by: Milind Mandel M.D. on 05/07/2017 at 11:38 Approved by: Milind Mandel M.D. on 05/07/2017 at 11:42
--- NOTE | 2017-05-07 12:36 | NUR ---
Evaluation completed. Please go to "Notes" then click on "Assessments and Notes" (bottom left corner of screen). Then select appropriate discipline tab on top of screen.
--- NOTE | 2017-05-07 13:08 | NUR ---
Patient progressing towards planned outcomes. NIH 2. Moving all extremities. Slight decrease in strength reported in right upper extremity; however, significantly improved since receiving TPA. Continued reports of decreased sensation in in rt upper arm, rt lateral neck and ear. Speech clear and organized. Alert and oriented x 3. Denies pain. SR per telemetry. VSS. Up with steady gait, tolerating activity. Will continue to monitor.
--- NOTE | 2017-05-07 13:31 | DRSVH ---
[facility] [address] [place] [address] Echocardiogram Report Name: KEI JEWELL JStudy Date: 05/07/2017 Height: 71 in Hospital Exam Location: [facility] Weight: 18 2 lb Gender: Male BSA: 2.0 m2 : 1945 Age: 71 yrs BP: 161/68 mmHg Reason For Study: CVA Ordering Physician: [facility]PITAL[facility] Performed By: Mehreen Millard Referring Physician: Dr Soledad Marrero Interpretation Summary 1) Normal left ventricular tihckness, size, wall motion, and systolic function (EF 60-65%). 2) Normal right ventricular size and function. 3) No significant valvular abnormalities. 4) Injection of contrast documented an interatrial shunt. 5) Hypertension present during the study (BP 161/68). 6) No prior Echo available for comparison. Procedure: A two-dimensional transthoracic echocardiogram with color flow and Doppler was performed. The study quality was technically adequate. There is no prior echocardiogram noted for this patient. The patient was in normal sinus rhythm during the exam. Left Ventricle: The left ventricle is normal in size, wall thickness, and systolic function without any focal wall motion abnormalities. The ejection fraction is estimated to be 60-65%. The E/A ratio is reversed, suggesting impaired early relaxation of the left ventricle or a reduced preload state. Assessment of diastolic parameters indicates a relaxation abnormality of the left ventricle, consistent with normal filling pressures. Right Ventricle: Borderline right ventricular enlargement. Right ventricular systolic function is borderline reduced. Atria: The left atrium is moderately dilated. Right atrial size is normal. Injection of contrast documented an interatrial shunt. Mitral Valve: The mitral valve leaflets appear mildly thickened, but open well. There is trace mitral regurgitation. Aortic Valve: The aortic valve is trileaflet. The aortic valve opens well. No aortic regurgitation is present. Tricuspid Valve: The tricuspid valve leaflets are thin and pliable. No tricuspid regurgitation. Pulmonic Valve: The pulmonic valve is normal in structure and function. There is no pulmonic valvular regurgitation. Great Vessels: The aortic root is normal size. The ascending aorta is at the upper limits of normal in size. The IVC is of normal diameter and collapses greater than 50% with a sniff. This suggests a low right atrial pressure of 3 mm Hg. Pericardium/ Pleura There is no pericardial effusion. There is no pleural effusion. MMode/2D Measurements & Calculations LVIDd: 5.0 cm LA dimension: 4.3 cm RA long axis Ao root diam LVIDs: 3.4 cm FS: 32.3 % LA A2 area: 23.0 cm RA area Aortic Jxn: 2.7 cm IVSd: 0.89 cm LA A4 area: 22.8 cm asc Aorta Diam LVPWd: 0.94 cm LA length (vol) : 17.2 cm RA vol Ao Arch Diam (Prox LA vol: 76.7 ml : 52.7 ml Trans): 2.9 cm LA vol index RA : 26.0 mm/ RVDd major IVC diam: 0.72 cm : 5.6 cm LV guevara. diameter/BSA LV sys. diameter/BSA RVD1 (basal) RVD2 (mid): 4.2 cm (cm/m^2): 2.5 (cm/m^2): 1.7 Doppler Measurements & Calculations Ao V2 max MV E max jan MV E/A: 0.84 PA V2 max : 135.7 cm/sec : 46.6 cm/sec Med Peak E' Jan : 86.3 cm/sec Ao max PG MV A max jan PA mean PG : 7.4 mmHg : 55.5 cm/sec E/E' med: 8.6 Ao mean PG MV P1/2t: 102.7 msec Lat Peak E' Jan PA Accel Time : 0.13 sec sev ratio: 1.0 E/E' lat: 5.9 E/e' average: 7.2 MV A dur: 0.16 sec MV dec time MV P1/2t max jan Ao V2 mean LV V1 max PG : 0.34 sec : 91.1 cm/sec MVA(P1/2t): 2.1 cm2 Ao V2 VTI: 31.3 cm LV V1 VTI : 32.2 cm PA V2 mean : 66.1 cm/sec Reading Physician:01:31 PM
--- NOTE | 2017-05-07 15:06 | PCM.PNMED ---
Subjective Date of Service May 07, 2017 Subjective Admitted to CCU per protocol after tPA for stroke Neuro exam has improved and NIHSS declined to 4 with no evidence of ICH or other complication. Exam Vital Signs Vital Sign - Last Date Time Temp Pulse Resp B/P Pulse Ox O2 Delivery O2 Flow Rate FiO2 05/07/17 11:50 75 05/07/17 11:48 36.5 16 128/62 95 Room Air Intake and Output 05/06/17 05/06/17 05/07/17 Cumulative From/Thru 15:00 23:00 07:00 05/06/17 10:06 - 05/07/17 06:42 Intake Total 999 ml 831 ml 1200 ml 3030 ml Output Total 700 ml 1150 ml 1850 ml Balance 999 ml 131 ml 50 ml 1180 ml Intake Oral 400 ml 400 ml IV Total 999 ml 431 ml 1200 ml 2630 ml Output Urine Total 700 ml 1150 ml 1850 ml Exam Not exxamined Lab and Diagnostics Result Diagram: 05/07/17 0310 05/07/17 0310 X-Rays, CTs and MRIs CT ANGIO HEAD AND NECK IMPRESSION: 1. Old left cerebellar and right occipital lobe infarct. 2. Extensive findings likely associated with microvascular ischemic changes. 3. No acute intracranial findings. 4. No stenosis, occlusion, or aneurysm of the intracranial or cervical arteries. Approved by: Ysabel Thompson M.D. on 05/06/2017 at 12:04 CT BRAIN IMPRESSION: 1. Old right occipital lobe and left cerebellar hemisphere infarcts as described above. 2. Moderate periventricular and deep white matter changes. These are likely associated with chronic microvascular ischemic changes. However, hypodense deep white matter foci secondary to acute or subacute infarct cannot be excluded. Unfortunately, no prior comparisons are available to determine the acuity of these findings. If further characterization for acute or subacute infarct as warranted, noncontrast MRI could be considered. These findings were discussed with Dr. Campos at 10:16 AM on 05/06/17. This study fulfills neurological imaging criteria for inclusion or exclusion of acute stroke therapies based on available published neurological guidelines. Approved by: Ysabel Thompson M.D. on 05/06/2017 at 10:17 X-RAY CHEST ONE VIEW, PORTABLE FINDINGS: IMPRESSION: No acute cardiopulmonary findings. Approved by: Ysabel Thompson M.D. on 05/06/2017 at 10:45 Assessment & Plan Adama Frank is a 71-year-old gentleman with past medical history of prior CVA in 2013 with no residual deficits, hyperlipidemia and hypertension who presents with new onset right upper extremity weakness and ataxia. Last normal approximately 1 hour before arrival ED. Speech intact. No critical care issues. PCCM will sign off. Please reconsult as indicated GI Prophylaxis: Not indicated VTE Prophylaxis: Other (TPA given) VTE Mechanical Devices: Intermittant Pneumatic CD Resuscitation Status: CPR: Attempt Resuscitation Jan Brown MD May 07, 2017 15:05
--- NOTE | 2017-05-07 15:40 | NUR ---
Social Work: Initial Assessment/Multidisciplinary Rounds D: Per EMR review, pt is a 71 year old male admitted for CVA post TPA. Pt is Medicare insurance with no supplement, no LTC or VA Benefits. PCP is Soledad Marrero MD. NOK is Maribel Frank, , . Advance directives completed-requested copy. Readmit score is low, 11/06. Pt discussed in am rounds. Pt is on day 1; no apparent deficits at this time. PT recs state pt can discharge home with outpatient PT. OT Recs still pending. No Concerns for pt's capacity for self care noted from team. INFORMATION SERVICES MANAGER met with pt and spouse at bedside. Sw role explained, discharge planning checklist and contact info provided. Pt lives on [address] with his spouse in a two story home. Pt has 15 steps to his bedroom. Pt uses no DME, has never had HH or skilled rehab. Pt and spouse anticipate discharge home. They are very concerned about finances as they describe a very limited income with little [employer] revenue. INFORMATION SERVICES MANAGER provided them with the [facility] application and discussed applying for [facility] for supplemental insurance. A: Pt who is I at baseline. P: Anticipate pt to discharge home via POV once medically stable; no anticipated discharge needs. INFORMATION SERVICES MANAGER to continue to follow to asses for further d/c needs pending evals from ST and OT. MARIANO Richardson Addendum: 05/07/17 at 1547 by SCARLETT BRASHER SS Amended: Links added.
--- NOTE | 2017-05-07 16:42 | PCM.PNMED ---
Subjective Date of Service May 07, 2017 Subjective Adama Frank is a 71-year-old gentleman with past medical history of prior CVA in 2013 with no residual deficits, hyperlipidemia and hypertension who presents with new onset right upper extremity weakness. At 0830 today, patient mentions he playing a game on his computer when he suddenly began to have right arm weakness, most noticeably in the bicep and shoulder with numbness starting in his anterior neck, radiating into the right arm and forearm. According to the , the patient had come down around 0900 and was unable to speak, confused and holding a banana in his hand, but unable to figure out how to peel it. He was then brought in by the to the emergency department. He does have a history of stroke back in 2013, but it is unclear what the workup was and he has no residual deficits from it. His workup was reportedly done at [place]. He has been taking Plavix since then. He denies any headaches, acute visual changes, difficulty with swallowing, chest pain, shortness of breath, nausea, vomiting, difficulty with walking, or other sensory losses. In the emergency department, the patient was found to have an NIH stroke scale score of 7. CT head without contrast did not show any signs of bleeding and so TPA was given at around 1037. Follow up CT angiogram did not show any thrombus occlusion. The patient was admitted to CCU for post-TPA protocol. Overnight: No acute overnight events. Patient has gained function of right arm, subjectively 50-70% strength. Today - Patient's right arm has gained much of his previous function back. He reports continued lateral numbness and numbness of his posterior right parietal/ temporal/and occipital region of his head. His NIH score is down to 1. Exam Vital Signs Vital Sign - Last Date Time Temp Pulse Resp B/P Pulse Ox O2 Delivery O2 Flow Rate FiO2 05/07/17 04:00 37.0 56 13 91/43 97 Room Air Intake and Output 05/06/17 05/06/17 05/07/17 Cumulative From/Thru 15:00 23:00 07:00 05/06/17 10:06 - 05/07/17 06:17 Intake Total 999 ml 831 ml 1200 ml 3030 ml Output Total 700 ml 1150 ml 1850 ml Balance 999 ml 131 ml 50 ml 1180 ml Intake Oral 400 ml 400 ml IV Total 999 ml 431 ml 1200 ml 2630 ml Output Urine Total 700 ml 1150 ml 1850 ml Exam General: No acute distress, well-developed, well-nourished, appropriately interactive HEENT: Normocephalic, atraumatic. External ears without defect. Pupils equal, round, and reactive to light and accommodation. Injected conjunctivae (chronic per patient), moist conjunctivae, and no lid lag. posterior occipital/temporal/ parietal region of his head with sensation. Neck: Supple with full range of motion. No jugular venous distension. No lymphadenopathy or thyromegaly. Cardiovascular: Regular rate and rhythm with no murmurs, rubs, or gallops appreciated Pulmonary: Clear to auscultation bilaterally with no crackles, wheezes, or rhonchi. Normal respiratory effort with no use of accessory muscles. Abdomen: Bowel tones present. Soft, nontender, nondistended. No hepatosplenomegaly or masses appreciated. Extremities: No clubbing, cyanosis, edema, or lymphadenopathy appreciated. Skin: Normal temperature, turgor, and texture; no rash, ulcers, or subcutaneous nodules appreciated. Neurological: Cranial nerves II - XII intact. Patient has good rotation of head , but weakness with right shoulder shrug. 2/5 strength in right arm flexion and extension. right hand inspector repairer strength. No sensation from right upper shoulder distally till the wrist. There is sensation in his hands. Reflexes are intact. 4 /5 left upper extremity strength. 4/5 lower extremity strength bilaterally with no loss in sensation. Finger to nose increased on right arm from the day before.. Repeat NIH stroke scale score is 1. No slurred speech. Psychiatric: Normal mood and affect. Alert and oriented to person, place, and time. IVs and Medications Medications Reviewed: Medications were reviewed in detail Lab and Diagnostics Result Diagram: 05/07/1730905/07/17309 X-Rays, CTs and MRIs CT ANGIO HEAD AND NECK IMPRESSION: 1. Old left cerebellar and right occipital lobe infarct. 2. Extensive findings likely associated with microvascular ischemic changes. 3. No acute intracranial findings. 4. No stenosis, occlusion, or aneurysm of the intracranial or cervical arteries. Approved by: Ysabel Thompson M.D. on 05/06/2017 at 12:04 CT BRAIN IMPRESSION: 1. Old right occipital lobe and left cerebellar hemisphere infarcts as described above. 2. Moderate periventricular and deep white matter changes. These are likely associated with chronic microvascular ischemic changes. However, hypodense deep white matter foci secondary to acute or subacute infarct cannot be excluded. Unfortunately, no prior comparisons are available to determine the acuity of these findings. If further characterization for acute or subacute infarct as warranted, noncontrast MRI could be considered. These findings were discussed with Dr. Campos at 10:16 AM on 05/06/17. This study fulfills neurological imaging criteria for inclusion or exclusion of acute stroke therapies based on available published neurological guidelines. Approved by: Ysabel Thompson M.D. on 05/06/2017 at 10:17 X-RAY CHEST ONE VIEW, PORTABLE FINDINGS: IMPRESSION: No acute cardiopulmonary findings. Approved by: Ysabel Thompson M.D. on 05/06/2017 at 10:45 MRI BRAIN WITH AND WITHOUT CONTRAST IMPRESSION: 1. Subacute left frontoparietal lobe infarcts. 2. Volume loss and small vessel ischemic disease. 3. Chronic cerebral and cerebellar infarcts. Approved by: Milind Mnadel M.D. on 05/07/2017 at 11:42 Cardiac Echo Impressions Echocardiogram Report Interpretation Summary 1) Normal left ventricular tihckness, size, wall motion, and systolic function (EF 60-65%). 2) Normal right ventricular size and function. 3) No significant valvular abnormalities. 4) Injection of contrast documented an interatrial shunt. 5) Hypertension present during the study (BP 161/68). 6) No prior Echo available for comparison. Assessment & Plan Adama Frank is a 71-year-old gentleman with past medical history of prior CVA in 2014 with no residual deficits, hyperlipidemia and hypertension who presents with new onset right upper extremity weakness. Acute cerebrovascular accident Patient presented to the emergency department with acute loss of right upper extremity sensation and strength, NIH stroke scale score 7, CT without acute bleed, TPA given approximately 2 hours after initial presentation. - Post TPA protocol including regular neuro checks per nursing staff completed. - Speech consulted for swallow evaluation and given recommendation for general diet. - Neurology consulted, - NIH down to 1 from 4, transitioned out of the CCU - Labetalol and hydralazine available when necessary for significantly elevated blood pressures >[address] for goal systolic blood pressure between 150 and 180. - Atorvastatin 80 mg given as a one-time dose to be repeated daily at bedtime - PT/OT evaluation - ASA and clopidogrel. - Heparin and bridge to warfarin. - ECHO shows Interatrial shunt. MRI as above. Essential Hypertension, present on admission, active - Allowing for permissive hypertension with goal systolic blood pressure between 150-180. - Hold home blood pressure medications Hyperlipidemia, chronic - Atorvastatin given as above. DVT prophylaxis: SCDs with additional anticoagulation contraindicated at this time given TPA administration, may consider initiation of heparin at more than 24 hours from TPA administration GI prophylaxis: Not indicated at this time CODE STATUS: Full Code Disposition: Patient admitted under inpatient status with expected length of stay greater than 2 midnights given presenting symptoms, likely complications, and required treatments. Pain Evaluation: Adequate Pain Control GI Prophylaxis: Not indicated VTE Prophylaxis: Other (TPA given) VTE Mechanical Devices: Intermittant Pneumatic CD Resuscitation Status: CPR: Attempt Resuscitation Attending Statement The patient was seen and examined together with Dr. Mukherjee on 05/07/2017 and I agree with the history, exam and plan as outlined in the note above. . KARLA MUKHERJEE DO May 07, 2017 06:27 Trent Ortiz MD May 08, 2017 09:21
[2017-05-07] MEDS ORDERED: Lidocaine 2% 5 mL Urojet Topical Jelly Syringe MUC_MEMBRM ONE (17:40)
[2017-05-07] MEDS ORDERED: Lidocaine 2% 6mL Topical Jelly TOPICAL ONE (17:50)
--- NOTE | 2017-05-07 17:51 | NUR ---
Transfer of Care to [facility] Received report from Alicia Vitale RN. Pt transferred to room 2006 by ambulating from 2019. Pt family at bedside. Care continues
[2017-05-08 00:02] VITALS: BP 125/68; PULSE 61; RESP 16; O2SAT 94
[2017-05-08 03:46] LABS: Mean Corpuscular Hemoglobin 32.7 pg (27.0-35.0); Mean Corpuscular Volume 98.6 fL (81-100)
--- NOTE | 2017-05-08 05:10 | NUR ---
Activity Patient up independent in room, independent with ADLs. A&Ox3, clear speech, appropriate responses. Patient sleeping through the night. Continue to monitor.
[2017-05-08 06:00] VITALS: BP 108/65; PULSE 78; RESP 16; O2SAT 94
[2017-05-08] MEDS: 0.9% Sodium Chloride 1,000 ML IV SCH ×2 (06:05→16:05)
--- NOTE | 2017-05-08 09:04 | DRSVH ---
PROCEDURE: US VENOUS LEG DUPLEX BILATERAL INDICATIONS: Stroke TECHNIQUE: Real-time imaging, as well as color and pulse Doppler interrogation, were performed of the deep veins of both legs from the inguinal ligament to the popliteal fossa. COMPARISON: None. FINDINGS: The deep veins are normally compressible, and free of intraluminal thrombus. Color and pu lse Doppler demonstrate normal phasic intravascular flow. There is normal augmentation response to d istal compression maneuver. IMPRESSION: No DVT found. Note is made that the right popliteal vein measures up to 1.4 cm in dimens ion, likely a normal anatomic variant. Normal caliber is less than 1 cm. Dictated by: Handy Pearce M.D. on 05/08/2017 at 9:02 Approved by: Handy Pearce M.D. on 05/08/2017 at 9:03
[2017-05-08 09:37] VITALS: BP 131/70; RESP 20; O2SAT 95
[2017-05-08 10:00] VITALS: PULSE 63
--- NOTE | 2017-05-08 10:00 | NUR ---
Evaluation completed. Please go to "Notes" then click on "Assessments and Notes" (bottom left corner of screen). Then select appropriate discipline tab on top of screen.
[2017-05-08 12:01] VITALS: BP 139/76; PULSE 71; RESP 18; O2SAT 97
--- NOTE | 2017-05-08 12:06 | PCM.PNMED ---
Subjective Date of Service May 08, 2017 Subjective No acute events noted overnight. Patient is doing well and states that he would like to go home as he is worried about the cost of remaining in the hospital. He continues to note decreased strength in his right arm as well as mild numbness on that side. However, he notes this has improved significantly. His is present and states that the patient appears at baseline and denies ongoing confusion or changes in speech. Patient denies decreased strength in lower extremities, headache, difficulty with ambulation or problems with speech. He denies nausea, vomiting, headache, change in vision, dizziness, chest pain or shortness of breath. Exam Vital Signs Vital Sign - Last Date Time Temp Pulse Resp B/P Pulse Ox O2 Delivery O2 Flow Rate FiO2 05/08/17 10:00 63 05/08/17 09:37 36.6 20 131/70 95 Room Air Intake and Output 05/07/17 05/07/17 05/08/17 Cumulative From/Thru 15:00 23:00 07:00 05/06/17 10:06 - 05/08/17 06:29 Intake Total 2181 ml 430 ml 5641 ml Output Total 1875 ml 3725 ml Balance 306 ml 430 ml 1916 ml Intake Oral 1750 ml 400 ml 2550 ml IV Total 431 ml 30 ml 3091 ml Output Urine Total 1875 ml 3725 ml # Voids 6 6 Exam General: Well appearing elderly gentleman in no acute distress and appropriately interactive. HEENT: Normocephalic, atraumatic. PERRLA, EOMI. Bilateral conjunctival injection (chronic per patient). Neck: Supple with full range of motion. No JVD or carotid bruits Cardiovascular: Regular rate and rhythm with no murmurs. Pulmonary: Clear to auscultation bilaterally Extremities: No edema, cyanosis or clubbing. Neurological: Alert and oriented x3. CN II - XII intact. Normal speech. No evidence of dysmetria. 4/5 strength in right upper extremity. Reflexes are intact. 5/5 left upper extremity strength. 5/5 lower extremity strength bilaterally with no loss in sensation. Sensation diminished to light touch in right upper extremity and right side of face otherwise within normal limits. Psychiatric: Normal mood and affect. IVs and Medications Medications Reviewed: Medications were reviewed in detail Lab and Diagnostics Laboratory Tests Test 05/08/17 03:15 05/08/17 09:55 White Blood Count 8.7th/mm3 (3.8-10.1) Red Blood Count 4.40mil/mm3 (4.40-5.80) Hemoglobin 14.4g/dL (13.8-17.2) Hematocrit 43.4% (41.0-50.0) Mean Corpuscular Volume 98.6fL (81-100) Mean Corpuscular Hemoglobin 32.7pg (27.0-35.0) Mean Corpuscular Hemoglobin Concent 33.2% (32.0-37.0) Red Cell Distribution Width 12.6% (12.3-15.4) Platelet Count 189bil/L (150-400) Sodium Level 141mEq/L (134-144) Potassium Level 4.3mEq/L (3.5-5.2) Chloride Level 104mEq/L (97-108) Carbon Dioxide Level 24mmol/L (18-29) Blood Urea Nitrogen 16mg/dL (8-27) Creatinine 1.24mg/dL (0.76-1.27) Estimat Glomerular Filtration Rate 61mL/min (>59) Glucose Level 108mg/dL (60-99) Calcium Level 9.3mg/dL (8.5-10.1) Erythrocyte Sedimentation Rate 1mm/hr (0-30) Result Diagram: 05/08/1731405/08/17314 X-Rays, CTs and MRIs CT ANGIO HEAD AND NECK IMPRESSION: 1. Old left cerebellar and right occipital lobe infarct. 2. Extensive findings likely associated with microvascular ischemic changes. 3. No acute intracranial findings. 4. No stenosis, occlusion, or aneurysm of the intracranial or cervical arteries. Approved by: Ysabel Thompson M.D. on 05/06/2017 at 12:04 CT BRAIN IMPRESSION: 1. Old right occipital lobe and left cerebellar hemisphere infarcts as described above. 2. Moderate periventricular and deep white matter changes. These are likely associated with chronic microvascular ischemic changes. However, hypodense deep white matter foci secondary to acute or subacute infarct cannot be excluded. Unfortunately, no prior comparisons are available to determine the acuity of these findings. If further characterization for acute or subacute infarct as warranted, noncontrast MRI could be considered. These findings were discussed with Dr. Campos at 10:16 AM on 05/06/17. This study fulfills neurological imaging criteria for inclusion or exclusion of acute stroke therapies based on available published neurological guidelines. Approved by: Ysabel Thompson M.D. on 05/06/2017 at 10:17 X-RAY CHEST ONE VIEW, PORTABLE FINDINGS: IMPRESSION: No acute cardiopulmonary findings. Approved by: Ysabel Thompson M.D. on 05/06/2017 at 10:45 MRI BRAIN WITH AND WITHOUT CONTRAST IMPRESSION: 1. Subacute left frontoparietal lobe infarcts. 2. Volume loss and small vessel ischemic disease. 3. Chronic cerebral and cerebellar infarcts. Approved by: Milind Mandel M.D. on 05/07/2017 at 11:42 US VENOUS LEG DUPLEX BILATERAL IMPRESSION: No DVT found. Note is made that the right popliteal vein measures up to 1.4 cm in dimension, likely a normal anatomic variant. Normal caliber is less than 1 cm. Dictated and approved by: Handy Pearce M.D. on 05/08/2017 at 9:02 Cardiac Echo Impressions Echocardiogram Report Interpretation Summary 1) Normal left ventricular tihckness, size, wall motion, and systolic function (EF 60-65%). 2) Normal right ventricular size and function. 3) No significant valvular abnormalities. 4) Injection of contrast documented an interatrial shunt. 5) Hypertension present during the study (BP 161/68). 6) No prior Echo available for comparison. Assessment & Plan Adama Frank is a 71-year-old right-handed man with a history of prior CVA in 2013 with no residual deficits, hyperlipidemia, hypertension, hypothyroidism and a remote history of encephalitis who presented with new onset right upper extremity weakness and numbness. Status post TPA on 05/06/[address] head negative for acute bleed. Now with near resolution of symptoms. Impression: Acute cerebrovascular accident -Patient with history of CVA in 2013 with MRI at that time showing a subacute stroke in the cerebellum and right parietal lobe. After which he was switched to Plavix due to onset of stroke despite daily Aspirin therapy. He has no prior history or ECG evidence of Atrial fibrillation and a transthoracic echocardiogram revealed a normal left ventricular EF, no significant valvular abnormalities and an interatrial shunt concerning for source for emboli. -CT angiogram showing an old left cerebellar and right occipital lobe infarct as well as microvascular ischemic changes, extensive deep and periventricular white matter changes consistent with patient's history of encephalitis; but no acute intracranial findings, no stenosis, occlusion, or aneurysm of the intracranial or cervical arteries. MRI brain remarkable for subacute left frontoparietal lobe infarcts, microvascular ischemic changes, volume loss and chronic cerebral and cerebellar infarcts. Recommendations: -DWAINE to exclude cardioembolic etiology especially due to evidence of bilateral infarcts and cortical involvement on imaging and absence of stenosis, occlusion , or aneurysm of the intracranial or cervical arteries to suggest a source for emboli. -If no source for cardioembolic emboli identified, recommend outpatient event monitoring or at a minimum a Zio Patch study for 14 days. Additionally, given the history of recurrent strokes recommend hypercoagulability workup to assess for underlying hypercoagulable disorder and/or occult malignancy. -Continue Plavix -Continued optimization of control of stroke risk factors. -Hypercoagulable profile Case was discussed with primary medical team who relay that Cardiology has also been consulted and do not recommend further evaluation with a transesophageal echocardiogram as the interatrial shunt is thought to be an unlikely source for emboli. GI Prophylaxis: Not indicated VTE Prophylaxis: Other (TPA given) VTE Mechanical Devices: Intermittant Pneumatic CD Resuscitation Status: CPR: Attempt Resuscitation Megan Orozco DO May 08, 2017 10:58
--- NOTE | 2017-05-08 12:39 | NUR ---
Neuros/mood Pt A&O X3. Answers questions appropriately. R arm is able to move vertically with no deficits but unable to move laterally. Pt stated difficulty with brushing his teeth. Some numbness occurring in the R shoulder and extending up to his R ear but pt does state he has "much more" feeling today than he did yesterday. Pt has been quite concerned all day about finances stating "I'm not the kind of person to rack up a bill he can't pay" and "I'd rather than rack up a bunch of debt in bills." guest services representative notified. Pt got up today and took a shower. at the bedside.
--- NOTE | 2017-05-08 15:38 | NUR ---
Social Work: Multidisciplinary Rounds/Continued Discharge Planning Data& Assessment: Pt was discussed in AM rounds this morning. Pt is being followed by neuro to r/o DWAINE. Pt is not medically ready for discharge at this time. PT, OT and ST has been cleared to return home without any additional discharge needs. Pt met with pt and pt at bedside to check in and assess for any unmet needs. Pt provided with [facility] $4 medication list and financial counselor information due to concerns over potential medical bills. Pt and pt deny any other needs. SW to continue to follow for any other MD orders or pt needs should they arise. Plan: Anticipated discharge home via POV when medically. Pt and pt deny any other needs. SW to continue to follow for any other MD orders or pt needs should they arise. MARIANO Alexis
--- NOTE | 2017-05-08 15:53 | PCM.DIMED ---
Kameron Preciado DO 05/08/17 1539: Discharge Instructions Date of Service May 08, 2017 Dates of Hospitalization May 06, 2017 at 11:04 Discharge Diagnosis Discharge Diagnosis Acute cerebrovascular accident s/p TPA Essential Hypertension Hyperlipidemia Medication Instructions Additional med instructions - Continue all of your home medications including Plavix - No new medication recommendations at this time until further cardiology work up Diet Discharge Diet: No restrictions Activity Discharge Activity: Outpatient Physical Therapy (2-3 times per week for rehab of your right upper extremity) Call your provider Call your provider for: Fever or Chills, Shortness of breath, Bleeding, Chest pain, Weakness (unilateral) Patient Instructions Patient Instructions Continue to take all of your home medications as prescribed - Make sure to take the Plavix daily Follow up with your primary care physician within 1-2 weeks - You will need a Zio Patch study outpatient for 14 days to monitor for irregular heart beat - You will also need a transesophageal echocardiogram scheduled outpatient as well to look for any clot formations in your heart. Follow up with Dr. Milian, Neurology within 1 month We recommend outpatient physical therapy 2-3 times per week for rehabilitation of your right arm and shoulder. Follow-up Provider: Soledad Marrero MD Follow-up with PCP in: 1 week (1-2 weeks) Provider: Mookie Milian MD Follow-up in: 4 weeks Tania Bill DO 05/08/17 1846: Discharge Instructions Attending's Statement The patient was seen and examined together with Dr. Preciado on 05/08/17 and I agree with the history, exam and plan as outlined in the note above. Kameron Preciado DO May 08, 2017 15:39 Tania Bill DO May 08, 2017 18:46
--- NOTE | 2017-05-08 16:05 | PCM.DC.MED ---
Discharge Summary Date of Service May 08, 2017 Dates of Hospitalization Date of Hospital Admission May 06, 2017 at 11:04 Date of Discharge: May 08, 2017 Providers: Admitting Physician: Trent Ortiz MD Primary Care Physician: Soledad Marrero MD Attending Physician: Tania Bill DO Model Engine Mechanic: Kameron Preciado DO Resident Senior: Aaron Carranza DO Diagnosis at Time of Discharge Diagnosis at Time of Discharge Acute cerebrovascular accident s/p TPA Essential Hypertension Hyperlipidemia Consultations Neurology, Dr. Milian ICU: Dr. Brown Procedures XRay, CTs & MRIs CT ANGIO HEAD AND NECK IMPRESSION: 1. Old left cerebellar and right occipital lobe infarct. 2. Extensive findings likely associated with microvascular ischemic changes. 3. No acute intracranial findings. 4. No stenosis, occlusion, or aneurysm of the intracranial or cervical arteries. Approved by: Ysabel Thompson M.D. on 05/06/2017 at 12:04 CT BRAIN IMPRESSION: 1. Old right occipital lobe and left cerebellar hemisphere infarcts as described above. 2. Moderate periventricular and deep white matter changes. These are likely associated with chronic microvascular ischemic changes. However, hypodense deep white matter foci secondary to acute or subacute infarct cannot be excluded. Unfortunately, no prior comparisons are available to determine the acuity of these findings. If further characterization for acute or subacute infarct as warranted, noncontrast MRI could be considered. These findings were discussed with Dr. Campos at 10:16 AM on 05/06/17. This study fulfills neurological imaging criteria for inclusion or exclusion of acute stroke therapies based on available published neurological guidelines. Approved by: Ysabel Thompson M.D. on 05/06/2017 at 10:17 X-RAY CHEST ONE VIEW, PORTABLE FINDINGS: IMPRESSION: No acute cardiopulmonary findings. Approved by: Ysabel Thompson M.D. on 05/06/2017 at 10:45 MRI BRAIN WITH AND WITHOUT CONTRAST IMPRESSION: 1. Subacute left frontoparietal lobe infarcts. 2. Volume loss and small vessel ischemic disease. 3. Chronic cerebral and cerebellar infarcts. Approved by: Milind Mandel M.D. on 05/07/2017 at 11:42 VENOUS LEG DUPLEX BILATERAL IMPRESSION: No DVT found. Note is made that the right popliteal vein measures up to 1.4 cm in dimension, likely a normal anatomic variant. Normal caliber is less than 1 cm. Dictated and approved by: Handy Pearce M.D. on 05/08/2017 at 9:02 ECG 12 Lead EKG revealed a heart rate of 66, sinus rhythm, borderline prolonged PRinterval. LAD, consider left anterior fascicular block, low voltage precordialleads. Cardiac Echo Impression Echocardiogram Report Interpretation Summary 1) Normal left ventricular tihckness, size, wall motion, and systolic function (EF 60-65%). 2) Normal right ventricular size and function. 3) No significant valvular abnormalities. 4) Injection of contrast documented an interatrial shunt. 5) Hypertension present during the study (BP 161/68). 6) No prior Echo available for comparison. Brief History Adama Frank is a 71-year-old gentleman with past medical history of prior CVA in 2013 with no residual deficits, hyperlipidemia and hypertension who presented to the ED with new onset right upper extremity weakness, confusion and dysarthria. In the ED, he had an NIH stroke scale score of 7, stat CT head without contrast revealed no acute hemmorrhage. After weighing the risks and benefits, patient was given TPA 2 hours after initial symptoms. CTA following the TPA administration did not reveal any thrombus. He was admitted to the ICU for post- TPA protocol and was noted to have improved function of his right upper extremity, no dysarthria or confusion, with NIH stroke scale score of 4. He quickly improved throughout his hospital stay with NIH stroke scale score of 1 on 7/9/17. He does currently have some minor deficits with sensation from the right shoulder down, and some leftover weakness. MRI was obtained per neurology recommendation which revealed: Subacute left frontoparietal lobe infarcts, Volume loss and small vessel ischemic disease and Chronic cerebral and cerebellar infarcts. TTE revealed intra-arterial shunt. Bilateral doppler ultrasound did not reveal any clots within the lower extremities. At this point , cardiology is not concerned about thrombus formation in the heart, where as neurology still would like a DWAINE. It was decided that this shall be done in the outpatient setting and the patient should also have a ZIO patch study done to evalute for arrythmia. Patient should have follow up with PCP in 1-[address] Milian in 1 month. Outpatient physical therapy is recommended 2-3 times per week for rehab. Patient should continue all outpatient medications including Plavix until reviewed by Dr. Milian. Hospital Course Adama Frank is a 71-year-old gentleman with past medical history of prior CVA in 2013 with no residual deficits, hyperlipidemia and hypertension who presents with new onset right upper extremity weakness and NIH stroke scale score 7, status post TPA with improving function and NIH stroke scale score of 1 Hospital problem list detailed below: Acute cerebrovascular accident Patient presented to the emergency department with acute loss of right upper extremity sensation and strength, NIH stroke scale score 7, CT without acute bleed, TPA given approximately 2 hours after initial presentation, now with NIH stroke scale of 1 and improving RUE strength and sensation. - Post TPA protocol including regular neuro checks per nursing staff completed. - Speech consulted for swallow evaluation and given recommendation for general diet. - Neurology consulted - NIH down to 1 from 4, transitioned out of the CCU - Labetalol and hydralazine available when necessary for significantly elevated blood pressures >[address] for goal systolic blood pressure between 150 and 180. - Atorvastatin 80 mg daily at bedtime - PT/OT evaluation. PT recommended outpatient physical therapy. Occupational therapy does not recommend any additional therapy outpatient. - Will continue with Plavix outpatient per neurology. - ECHO shows Interatrial shunt. MRI as above. Essential Hypertension, present on admission, active - Allowing for permissive hypertension with goal systolic blood pressure between 150-180. 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 External ears without defect. Pupils equal, round, and reactive to light and accommodation. Injected conjunctivae (chronic per patient), moist conjunctivae, and no lid lag. posterior occipital/temporal/ parietal region of his head with sensation, but improved from previous day. Neck: Supple with full range of motion. No jugular venous distension. No lymphadenopathy or thyromegaly. Cardiovascular: Regular rate and rhythm with no murmurs, rubs, or gallops appreciated Pulmonary: Clear to auscultation bilaterally with no crackles, wheezes, or rhonchi. Normal respiratory effort with no use of accessory muscles. Abdomen: Bowel tones present. Soft, nontender, nondistended. No hepatosplenomegaly or masses appreciated. Extremities: No clubbing, cyanosis, edema, or lymphadenopathy appreciated. Skin: Normal temperature, turgor, and texture; no rash, ulcers, or subcutaneous nodules appreciated. Neurological: Cranial nerves II - XII intact. Patient has good rotation of head , but weakness with right shoulder shrug. 3/5 strength in right arm flexion and extension. right hand porcelain enamel sprayer strength. No sensation from right upper shoulder distally till the wrist. There is sensation in his hands. Reflexes are intact. 4 /5 left upper extremity strength. 4/5 lower extremity strength bilaterally with no loss in sensation. Finger to nose increased on right arm from the day before. Repeat NIH stroke scale score is 1. No slurred speech. Psychiatric: Normal mood and affect. Alert and oriented to person, place, and time. Test 05/06/17 10:12 05/06/17 11:10 05/07/17 03:10 05/08/17 03:15 Prothrombin Time 11.0sec (8.1-12.5) Prothromb Time International Ratio 1.03ratio Activated Partial Thromboplast Time 26.1sec (22.8-33.0) Troponin T 0.010ug/L (0.0-0.011) Hold Ko Top Tube Received (Received) Urine Color Straw (YELLOW) Urine Appearance Clear (CLEAR,HAZY) Urine pH 6.5 (5.0-8.0) Urine Specific Dillon 1.005 (1.003-1.035) Urine Protein Negativemg/dL (NEG,TRACE) Urine Glucose (UA) Negativemg/dL (NEGATIVE) Urine Ketones Negativemg/dL (NEGATIVE) Urine Occult Blood Negative (NEGATIVE) Urine Nitrite Negative (NEGATIVE) Urine Bilirubin Negative (NEGATIVE) Urine Urobilinogen Normalmg/dL (NORMAL) Urine Leukocyte Esterase Negative (NEGATIVE) Urine RBC 0-2/hpf (0-2) Urine WBC 0-5/hpf (0-5) Urine Epithelial Cells None/hpf (NONE-MOD) Urine Crystals None seen (NONE SEEN) Urine Bacteria None/hpf (NONE-FEW) Urine Hyaline Casts None/lpf (NONE) Urine Granular Casts None seen (NONE SEEN) Urine Waxy Casts None seen (NONE SEEN) Urine Red Blood Cell Casts None seen (NONE SEEN) Urine White Blood Cell Casts None seen (NONE SEEN) Urine Mucus None seen (None Seen) Urine Trichomonas None seen (NONE SEEN) Urine Yeast None (NONE SEEN) Urinalysis Comment None Urine Culture Reflexed Not indicated Neutrophils (%) (Auto) 59.1% (40-74) Lymphocytes (%) (Auto) 29.5% (14-46) Monocytes (%) (Auto) 9.3% (4-12) Eosinophils (%) (Auto) 1.6% (0-5) Basophils (%) (Auto) 0.4% (0-3) Magnesium Level 2.1mg/dL (1.6-2.6) Total Bilirubin 0.6mg/dL (0.0-1.2) Aspartate Amino Transf (AST/SGOT) 20U/L (0-50) Alanine Aminotransferase (ALT/SGPT) 26U/L (0-44) Alkaline Phosphatase 74U/L (25-160) Total Protein 5.9g/dL (6.4-8.4) Albumin 3.7g/dL (3.4-5.0) Triglycerides Level 77mg/dL (0-149) Cholesterol Level 124mg/dL (100-199) LDL Cholesterol, Calculated 71.600mg/dL (0-99) VLDL Cholesterol 15.400mg/dL HDL Cholesterol 37mg/dL (>39) Cholesterol/HDL Ratio 3.35 (0.0-4.4) Thyroid Stimulating Hormone (TSH) 3.540uIU/mL (0.450-4.500) White Blood Count 8.7th/mm3 (3.8-10.1) Red Blood Count 4.40mil/mm3 (4.40-5.80) Hemoglobin 14.4g/dL (13.8-17.2) Hematocrit 43.4% (41.0-50.0) Mean Corpuscular Volume 98.6fL (81-100) Mean Corpuscular Hemoglobin 32.7pg (27.0-35.0) Mean Corpuscular Hemoglobin Concent 33.2% (32.0-37.0) Red Cell Distribution Width 12.6% (12.3-15.4) Platelet Count 189bil/L (150-400) Sodium Level 141mEq/L (134-144) Potassium Level 4.3mEq/L (3.5-5.2) Chloride Level 104mEq/L (97-108) Carbon Dioxide Level 24mmol/L (18-29) Blood Urea Nitrogen 16mg/dL (8-27) Creatinine 1.24mg/dL (0.76-1.27) Estimat Glomerular Filtration Rate 61mL/min (>59) Glucose Level 108mg/dL (60-99) Calcium Level 9.3mg/dL (8.5-10.1) Test 05/08/17 09:55 Erythrocyte Sedimentation Rate 1mm/hr (0-30) Discharge Medications Discharge Medications Atorvastatin (Lipitor) 20 Mg Tablet 20 MG PO DAILY (Reported) Clopidogrel Bisulfate (Plavix) 75 Mg Tablet 75 MG PO DAILY (Reported) Flaxseed Oil ([place]-3 Flaxseed Oil) 1,000 Mg Capsule Unknown Dose PO DAILY ( Reported) Levothyroxine (Synthroid) 50 Mcg Tablet 50 MCG PO DAILY (Reported) Lisinopril (Lisinopril) 5 Mg Tablet 5 MG PO DAILY (Reported) Additional med instructions - Continue all of your home medications including Plavix - No new medication recommendations at this time until further cardiology work up Followup Plan Discharge Diet: No restrictions Discharge Activity: Outpatient Physical Therapy (2-3 times per week for rehab of your right upper extremity) Patient Instructions Continue to take all of your home medications as prescribed - Make sure to take the Plavix daily Follow up with your primary care physician within 1-2 weeks - You will need a Zio Patch study outpatient for 14 days to monitor for irregular heart beat - You will also need a transesophageal echocardiogram scheduled outpatient as well to look for any clot formations in your heart. Follow up with Dr. Milian, Neurology within 1 month We recommend outpatient physical therapy 2-3 times per week for rehabilitation of your right arm and shoulder. Follow-up Provider: Soledad Marrero MD Follow-up with PCP in: 1 week (1-2 weeks) Provider: Mookie Milain MD Follow-up in: 4 weeks Time spent Greater than 35 minutes Attending Statement The patient was seen and examined together with Dr. Preciado on 05/08/2017 and I have added additional information to the note above. copies to: Soledad Marrero MD; Mookie Milian MD, Malik A DO May 08, 2017 16:05 Tania Bill DO May 08, 2017 18:53
--- NOTE | 2017-05-08 17:04 | NUR ---
Discharge Pts IVs were removed and telemetry leads were removed. Pt was provided education on diagnosis and further care. Pt understood directions. at the bedside- also understanding of instructions. New prescriptions were given. Pt and this RN both signed final page of discharge packet. Pt understands about future appointments to be made. Pt was escorted out to vehicle by staff member.
[2017-05-10 14:10] LABS: Perinuclear (P-ANCA) <1:20 titer (Neg:<1:20)
[2017-05-10 20:07] LABS: Activated Protein C Resistance 2.8 ratio (2.0-3.5); Protein C-Functional 111 % (73-180)
[2017-05-10 21:10] LABS: dRVVT 42.7 sec (0.0-47.0)
== END 2017-05-08 17:09 | disposition home or self-care (01) | DRG 62 ==
LOC: SED 09:52 → CCU 11:04 → PCC 05-07 11:55 → UNDODISIN 05-08 16:51
PROVIDERS: ADMIT Internal Medicine; ATTEND Neuromusculoskeletal Medicine & OMM
DX: I63.9 Cerebral infarction, unspecified (principal); G81.91 Hemiplegia, unspecified affecting right dominant side; R20.9 Unspecified disturbances of skin sensation; R29.707 NIHSS score 7; I10 Essential (primary) hypertension; Z79.02 Long term (current) use of antithrombotics/antiplatelets; R40.2142 Coma scale, eyes open, spontaneous, at arrival to emergency department; R40.2252 Coma scale, best verbal response, oriented, at arrival to emergency department; R40.2362 Coma scale, best motor response, obeys commands, at arrival to emergency department; R40.2412 Glasgow coma scale score 13-15, at arrival to emergency department; E78.5 Hyperlipidemia, unspecified; R27.0 Ataxia, unspecified